=== PATIENT | female | born 1975 | race Caucasian/White ===

== ENCOUNTER 2017-03-11 08:48 | Emergency (ER) | payer OTHER ==
[~2017-03-11] VITALS: Ht 170.2 cm; Wt 99.8 kg
[2017-03-11] MEDS ORDERED: KETOROLAC 60 MG/2 ML VIAL IM STA (09:27)
[2017-03-11] MEDS ORDERED: OMEP40CA36 PO (09:29)
--- NOTE | 2017-03-11 09:48 | ED Back Pain ---
General Chief Complaint: Back Problems Stated Complaint: BACK PAIN Nursing Triage Note: PT CO OF BACK PAIN Nursing Sepsis Screen: No Definite Risk Source of Information: Patient Exam Limitations: No Limitations History of Present Illness Time Seen by Provider: 09:15 Initial Comments Here with report of left low back pain onset yesterday after lifting a box. Pain is both sides to the lower back but worse on the left and radiates down the left buttock to the left leg. Denies numbness or tingling between her legs. Denies weakness. Denies bowel or bladder incontinence. Denies fever or chills. Timing/Duration: 24 Hours Severity: Moderate Pain/Injury Location: Back Radiation: Buttocks, Upper Legs Modifying Factors: Worse With Movement, Improves With Rest Associated Symptoms: muscle spasms, No fever, No weakness, No numbness in legs/ feet, No tingling in legs/feet, No sensory/motor loss, lower back pain, No loss of bladder control, No loss of bowel control Allergies and Home Medications Allergies Coded Allergies: Penicillins (Verified Allergy, Unknown, 03/11/17) Home Medications Omeprazole 40 Mg Capsule.dr, 40 MG PO DAILY, (Reported) Constitutional: see HPI, No chills, No fever, No weakness Respiratory: no symptoms reported Cardiovascular: no symptoms reported Gastrointestinal: no symptoms reported Genitourinary: no symptoms reported Musculoskeletal: see HPI Skin: no symptoms reported Psychiatric/Neurological: No Symptoms Reported Past Kpopnef-Aqepbn-Zpvzko Hx Patient Social History Alcohol Use: Denies Use Recreational Drug Use: No Smoking Status: Current Everyday Smoker Type Used: Cigarettes Recent Foreign Travel: No Contact w/Someone Who Travel: No Recent Infectious Disease Expo: No Recent Hopitalizations: No Surgeries HX Surgeries: Yes Surgeries: Gallbladder Respiratory Hx Respiratory Disorders: No Cardiovascular Hx Cardiac Disorders: No Reproductive System : No Genitourinary Hx Genitourinary Disorders: No Gastrointestinal Hx Gastrointestinal Disorders: No Musculoskeletal Hx Musculoskeletal Disorders: No HEENT HX ENT Disorders: No Cancer Hx Cancer: No Reviewed Nursing Assessment Reviewed/Agree w Nursing PMH: Yes Family Medical History Significant Family History: No Pertinent Family Hx Physical Exam Vital Signs Vital Sign - Last 12Hours 03/11/17 09:15 Temp 97.9 Pulse 74 Resp 18 B/P (MAP) 130/91 Pulse Ox 97 Capillary Refill : Less Than 3 Seconds General Appearance: No Apparent Distress, WD/WN Neck: Non Tender, Supple Cardiovascular: Regular Rate, Rhythm, No Murmur Respiratory: Lungs Clear, Normal Breath Sounds Gastrointestinal: Non Tender, Soft Back: Muscle Spasm (left lateral lumbar spine), No Vertebral Tenderness, Other (point tender at the SI joint on the left and to a lesser extent on the right.) Extremity: Normal Inspection, Normal Range of Motion, Non Tender Neurologic/Psychiatric: Alert, Oriented x3 Skin: Normal Color, Warm/Dry Progress/Results/Core Measures Results/Orders My Orders Orders - JAYLA PORTER MD Ketorolac Injection (Toradol Injection) (03/11/17 09:27) Vital Signs/I&O Vital Sign - Last 12Hours 03/11/17 09:15 Temp 97.9 Pulse 74 Resp 18 B/P (MAP) 130/91 Pulse Ox 97 Blood Pressure Mean: 104 Progress Note : Progress Note Seen and evaluated. Toradol 60 mg IM. No imaging indicated currently. This was discussed with the patient and she agrees. Discharged home with return precautions. Patient verbalize understanding instructions and agreement with plan. Departure Impression Impression: Primary Impression: Lumbar radiculopathy Disposition: 01 HOME, SELF-CARE Condition: Improved Departure-Patient Inst. Decision time for Depature: 09:48 Referrals: NO,LOCAL PHYSICIAN (PCP/Family) Primary Care Physician Patient Instructions: Lumbar Muscle Strain (DC), Low Back Pain (DC) Add. Discharge Instructions: 28 All discharge instructions reviewed with patient and/or family. Voiced understanding. You may take ibuprofen 800 mg every 8 hours as needed for pain. You may take Tylenol 1000 mg every 8 hours as needed for pain. You may use [id number] patch such as ice with lidocaine patch, salon pas with lidocaine patch or Aspercreme with lidocaine patch over the affected area as needed for discomfort per package directions. Take medications as directed. Return for worse pain, weakness, numbness between your legs, difficulty with going to the bathroom or walking or other concerns as needed. Scripts Prednisone (Prednisone) 20 Mg Tab 40 MG PO DAILY, #14 TAB 0 Refills Prov: JAYLA PORTER MD 03/11/17 Cyclobenzaprine HCl (Cyclobenzaprine HCl) 10 Mg Tablet 10 MG PO Q8H Y for SPASMS, #15 TAB 0 Refills Prov: JAYLA PORTER MD 03/11/17 Work/School Note: Work Release Form Date Seen in the Emergency Department: March 11, 2017 Return to Work: March 11, 2017 Restrictions: No Restrictions JAYLA PORTER MD March 11, 2017 09:48
[2017-03-11] MEDS ORDERED: CYCL10TA9 PO (09:52)
[2017-03-11] MEDS ORDERED: PRD20T PO (09:52)
[2017-03-11 10:14] VITALS: BP 130/91
== END 2017-03-11 10:14 | disposition home or self-care (01) ==
LOC: ER 08:52
DX: M54.16 Radiculopathy, lumbar region (principal); F17.210 Nicotine dependence, cigarettes, uncomplicated
CPT/HCPCS: 96372; 99281